=== PATIENT | female | born 2000 | race Caucasian/White ===

== ENCOUNTER → 2019-11-26 | Emergency (ER) | payer OTHER ==
[~2019-11-26] VITALS: Ht 167.6 cm; Wt 62.6 kg
[~2019-11-26] MED LIST: AZITHROMYCIN 500MG/ 250ML 250 ML IV ONE; SODIUM CHLORIDE 0.9% 1,000 ML IV ONE; cefTRIAXone 1GM/50ML D5W 50 ML IV ONE; diphenhdrAMINE HCL 50 MG/1 ML VL IV ONE
[2019-11-26 15:48] LABS: Albumin 3.5 g/dL (3.4-5.0); Calcium 8.5 mg/dL (8.5-10.1); Potassium 3.4 mmol/L (3.5-5.1)
[2019-11-26 15:51] LABS: BUN/Creatinine Ratio 18.5; Bilirubin, Total 0.4 mg/dL (0.2-1.0); Total Protein 7.5 g/dL (6.4-8.2)
[2019-11-26 15:52] LABS: Basophils # (auto) 0.1 10 ^3/uL (0-0.2); Eosinophils # (auto) 0.1 10 ^3/uL (0-0.8); Eosinophils % (auto) 0.9 % (0.0-7.0); Hemoglobin 15.2 g/dL (12.2-16.2); Lymphocytes # (auto) 2.6 10 ^3/uL (0.4-5.4); Lymphocytes % (auto) 37.4 % (10.0-50.0); Mean Corpuscular Hemoglobin 29.3 pg (28.0-32.0); Mean Corpuscular Hgb Conc. 33.7 g/dL (32.0-36.0); Monocytes # (auto) 0.6 10 ^3/uL (0-1.3); Monocytes % (auto) 8.9 % (0.0-12.0); Neutrophils # (auto) 3.6 10 ^3/uL (1.6-8.6); Neutrophils % (auto) 51.8 % (37.0-80.0); Nucleated Red Blood Cells % 0.1 %; Platelet Count (auto) 271 10^3/uL (140-450); Red Blood Cells 5.17 10^6/uL (4.0-5.20); Red Cell Distribution Width 13.5 % (11.8-14.3)
[2019-11-26 17:31] VITALS: BP 102/45
== END | disposition home or self-care (01) ==
LOC: ER 14:00
DX: U07.1 COVID-19 (principal); J12.89 Other viral pneumonia; E86.0 Dehydration; J02.9 Acute pharyngitis, unspecified
CPT/HCPCS: 36415; 71045; 80053; 82728; 83615; 85025; 87804; 87880; 96361; 96365; 96375; 99285; J0456; J0696; J1200; J7030; J7040; U0003

== ENCOUNTER 2020-04-08 19:08 | Emergency (ER) | payer OTHER ==
[~2020-04-08] VITALS: Ht 167.6 cm; Wt 61.2 kg
[2020-04-08 19:42] VITALS: BP 109/67
[2020-04-08 20:54] LABS: Urine Bacteria FEW /hpf (None Seen); Urine Blood Negative /uL (Negative); Urine Mucus FEW (None Seen); Urine Specific Gravity 1.026 (1.001-1.035); Urine WBC 2 /hpf (0 - 5)
[2020-04-08 21:04] LABS: Alcohol, Urine < 3.0 mg/dL (0-10); Barbiturate Scree,Urine NEGATIVE (NEGATIVE); Benzodiazephine Screen, Urine NEGATIVE (NEGATIVE); Cannabinoid Screen, Urine POSITIVE (NEGATIVE); Cocaine Screen, Urine NEGATIVE (NEGATIVE); Opiate Scree,Urine NEGATIVE (NEGATIVE); Phencyclidine Screen, Urine NEGATIVE (NEGATIVE)
[2020-04-08 21:11] LABS: Amphetamine Screen, Urine NEGATIVE (NEGATIVE)
== END 2020-04-08 20:41 | disposition left against medical advice (07) ==
LOC: ER 19:08
DX: R10.9 Unspecified abdominal pain (principal); Z53.21 Procedure and treatment not carried out due to patient leaving prior to being seen by health care provider
CPT/HCPCS: 80307; 81001; 81025

== ENCOUNTER → 2020-04-09 | Emergency (ER) | payer OTHER ==
[~2020-04-09] VITALS: Ht 167.6 cm; Wt 59.0 kg
[~2020-04-09] MED LIST changes: -AZITHROMYCIN 500MG/ 250ML 250 ML IV ONE; +PROCHLORPERAZINE EDISYLATE 5 MG/ML 2ML VIAL IV ONE; -cefTRIAXone 1GM/50ML D5W 50 ML IV ONE; -diphenhdrAMINE HCL 50 MG/1 ML VL IV ONE
[2020-04-09 08:45] LABS: Basophils # (auto) 0 10 ^3/uL (0-0.2); Basophils % (auto) 0.6 % (0.0-2.0); Eosinophils # (auto) 0 10 ^3/uL (0-0.8); Eosinophils % (auto) 0.5 % (0.0-7.0); Hemoglobin 16.1 g/dL (12.2-16.2); Lymphocytes # (auto) 2.4 10 ^3/uL (0.4-5.4); Lymphocytes % (auto) 31.8 % (10.0-50.0); Mean Corpuscular Hgb Conc. 34.2 g/dL (32.0-36.0); Mean Corpuscular Volume 87.7 fL (80.0-100.0); Monocytes # (auto) 0.6 10 ^3/uL (0-1.3); Monocytes % (auto) 8.4 % (0.0-12.0); Neutrophils # (auto) 4.4 10 ^3/uL (1.6-8.6); Neutrophils % (auto) 58.7 % (37.0-80.0); Platelet Count (auto) 311 10^3/uL (140-450); Red Blood Cells 5.36 10^6/uL (4.0-5.20); Red Cell Distribution Width 13.4 % (11.8-14.3); White Blood Cell 7.5 10^3/uL (4.4-10.8)
[2020-04-09 09:06] LABS: Magnesium 2.4 mg/dL (1.6-2.6); Potassium 3.4 mmol/L (3.5-5.1)
[2020-04-09 09:13] LABS: Albumin 4.6 g/dL (3.4-5.0); BUN/Creatinine Ratio 12.4; Bilirubin, Total 0.9 mg/dL (0.2-1.0); Calcium 9.3 mg/dL (8.5-10.1); Total Protein 7.6 g/dL (6.4-8.2)
[2020-04-09 09:31] LABS: Urine Bacteria NONE SEEN /hpf (None Seen); Urine Blood Negative /uL (Negative); Urine Mucus FEW (None Seen); Urine Specific Gravity 1.026 (1.001-1.035); Urine WBC 7 /hpf (0 - 5)
[2020-04-09 10:45] VITALS: BP 118/85
[2020-04-09] MEDS: MORPHINE SULFATE 4 MG/ML SYR/VIAL IV ONE ×2 (11:25→12:26)
== END | disposition home or self-care (01) ==
LOC: ER 07:29
DX: E87.6 Hypokalemia (principal); E86.0 Dehydration; F12.90 Cannabis use, unspecified, uncomplicated; Z88.1 Allergy status to other antibiotic agents
CPT/HCPCS: 36415; 74176; 80053; 81001; 81025; 82150; 83690; 83735; 85025; 96360; 99284; J0780; J2270; J7030